=== PATIENT | female | born 1945 | race Hispanic/Latino ===

== ENCOUNTER 2019-09-08 12:27 | Outpatient (CLI) | payer MEDICARE ==
--- NOTE | 2019-09-08 14:51 | Ultrasound Report ---
ULTRASOUND-GUIDED VACUUM-ASSISTED NEEDLE CORE BIOPSY LEFT BREAST WITH CLIP PLACEMENT CLINICAL: Approximately one year status post left partial mastectomy with subsequent radiation therap y for left breast cancer. Outside images demonstrate an oval solid 12 mm mass surrounded by fluid at the surgical site. FINDINGS: The procedure was explained to the patient and informed consent was obtained. Ultrasound demonstrated the previously identified lesion. I marked the breast with a felt tip marker and a timeout was called. The skin was prepped with Chloro -Prep and anesthetized with 1% lidocaine. Needle core biopsy was performed through small dermatotomy using ultrasound guidance, 2% lidocaine wi th epinephrine for deep anesthesia and a 13-gauge Mammotome Elite biopsy device. After introduction o f the biopsy probe, a fluid-filled cavity collapsed. No tissue cores could be obtained with a vacuum device and I opted to take additional samples with a 14-gauge Achieve biopsy device. Multiple cores w ere obtained and placed in formalin. A clip was deployed within the lesion. The patient tolerated the procedure well and there were no apparent complications. Hemostasis was ach ieved with minimal effort and a sterile dressing was applied. A post procedure mammogram demonstrated concordant clip deployment. The clip is adjacent to a biopsy is ordered device and there is a moderate amount of air at the biopsy site. She left the department i n good condition and was given instructions for wound care and follow-up. IMPRESSION: Uncomplicated ultrasound guided vacuum assisted needle core biopsy with clip placement le ft breast. Signer Name: Eric Arambula MD Signed: 09/08/2019 2:47 PM Workstation Name: [id number]
--- NOTE | 2019-09-08 15:17 | Mammography Report ---
DIGITAL DIAGNOSTIC MAMMOGRAM WITH CAD, 09/08/2019 INDICATION: For clip placement immediately after ultrasound-guided needle biopsy. Approximately one y ear status post partial mastectomy for breast cancer. She also had subsequent radiation therapy. TECHNIQUE: Digital left mammographic imaging was performed. This examination was interpreted with the benefit of Computer-aided Detection analysis. COMPARISON: 04/21/2018 mammogram from [facility] FINDINGS: Breast Density: The breast is heterogeneously dense, which may obscure small masses. A biopsy clip is identified adjacent to a BioZorb marker at the site of partial mastectomy and partia l breast radiation. There is a relatively large collection of air at the biopsy site. IMPRESSION: Satisfactory clip deployment after ultrasound-guided needle biopsy. Follow up recommendation: Clinical exam Post biopsy imaging. A "normal" or negative report should not discourage follow up or biopsy of a clinically significant f inding. A written summary of these findings will be mailed to the patient. The patient will be entered into a mammography reporting system which will generate a reminder letter for the patient's next appointmen t at the appropriate interval. According to the [employer], yearly mammograms are recommended starting at age 40 and continuing as long as a woman is in good health. Breast MRI is recommended for women with an herb roximately 20-25% or greater lifetime risk of breast cancer, including women with a strong family his tory of breast or ovarian cancer and women who have been treated for Hodgkin's disease. Signer Name: Eric Arambula MD Signed: 09/08/2019 3:13 PM Workstation Name: [id number]
== END 2019-09-08 12:28 | disposition home or self-care (01) ==
LOC: SPVWC 12:27
PROVIDERS: ATTEND Internal Medicine Hematology & Oncology
DX: C50.412 Malignant neoplasm of upper-outer quadrant of left female breast (principal); N64.89 Other specified disorders of breast; Z90.12 Acquired absence of left breast and nipple
CPT/HCPCS: 88305